=== PATIENT | female | born 1990 | race African-American/Black ===

== ENCOUNTER 2022-01-24 20:55 | Emergency (ER) | payer MEDICAID ==
[2022-01-24] MEDS ORDERED: Lisinopril 10 MG Tab PO ONE (22:49)
[2022-01-24] MEDS ORDERED: Ketorolac 30 MG/ML SDV IM ONE (22:58)
[2022-01-24 23:19] LABS: CORONAVIRUS COVID-19 NAA NEGATIVE (NEGATIVE); INFLUENZA A NAA NEGATIVE (NEGATIVE); INFLUENZA B NAA NEGATIVE (NEGATIVE)
[2022-01-24] MEDS ORDERED: Labetalol 100 MG Tab PO STA (23:19)
[2022-01-24] MEDS ORDERED: Penicillin G Benzathine 1,200,000 Units/2 ML Syringe IM ONE (23:37)
[2022-01-24 23:44] LABS: BLOOD UREA NITROGEN,BUN 10 mg/dL (7.0-18.0); CARBON DIOXIDE,CO2 25.3 mmol/L (21.0-32.0); CHLORIDE,CL 98 mmol/L (98-107); GLUCOSE RANDOM 104 mg/dL (74-106); POTASSIUM,K 3.7 mmol/L (3.5-5.1); SODIUM,NA 136 mmol/L (136-145)
== END 2022-01-25 00:29 | disposition home or self-care (01) ==
LOC: MW.ED 20:55
DX: J02.0 Streptococcal pharyngitis (principal); I10 Essential (primary) hypertension; Z79.899 Other long term (current) drug therapy; Z20.822 Contact with and (suspected) exposure to COVID-19
CPT/HCPCS: 0240U; 36415; 80053; 87651; 93005; 96372; 99283; A9270; J0561; J1885; 93010; 99284

== ENCOUNTER 2022-01-29 00:19 | Emergency (ER) | payer MEDICAID ==
[2022-01-29] MEDS ORDERED: Ondansetron 4 MG/2 ML SDV IVPUSH ONE (00:31)
[2022-01-29] MEDS ORDERED: Sodium Chloride 0.9% 10 ML Syringe FLUSH PRN (00:31)
[2022-01-29] MEDS ORDERED: Ketorolac 30 MG/ML SDV IVPUSH ONE (00:31)
[2022-01-29] MEDS ORDERED: fentaNYL 50 MCG/ML SDV IVPUSH ONE (00:31)
[2022-01-29] MEDS ORDERED: Sodium Chloride 0.9% 2.5 ML Syringe FLUSH PRN (00:31)
[2022-01-29] MEDS ORDERED: Sodium Chloride 0.9% 1,000 ML IV ONE (00:31)
[2022-01-29 01:20] LABS: BLOOD UREA NITROGEN,BUN 18 mg/dL (7.0-18.0); CARBON DIOXIDE,CO2 23.3 mmol/L (21.0-32.0); CHLORIDE,CL 104 mmol/L (98-107); ESTIMATED GFR > 60.0 ml/min; GLUCOSE RANDOM 103 mg/dL (74-106); LIPASE 60 U/L (73-393); POTASSIUM,K 3.8 mmol/L (3.5-5.1); SODIUM,NA 140 mmol/L (136-145)
== END 2022-01-29 03:23 | disposition home or self-care (01) ==
LOC: MW.ED 00:19
DX: K52.9 Noninfective gastroenteritis and colitis, unspecified (principal); I10 Essential (primary) hypertension
CPT/HCPCS: 36415; 74176; 80053; 81001; 81025; 83690; 85025; 96374; 96375; 99284; J1885; J2405; J7030; 99283; J3490

== ENCOUNTER 2022-04-04 05:28 | Emergency (ER) | payer MEDICAID ==
[2022-04-04] MEDS ORDERED: Labetalol 100 MG Tab PO STA (05:34)
[2022-04-04] MEDS ORDERED: Lisinopril 10 MG Tab PO STA (05:34)
[2022-04-04] MEDS ORDERED: hydrALAZINE 20 MG/ML SDV IVPUSH STA (06:00)
[2022-04-04 06:04] LABS: BLOOD UREA NITROGEN,BUN 13 mg/dL (7.0-18.0); CARBON DIOXIDE,CO2 24.4 mmol/L (21.0-32.0); CHLORIDE,CL 101 mmol/L (98-107); GLUCOSE RANDOM 98 mg/dL (74-106); POTASSIUM,K 3.3 mmol/L (3.5-5.1); SODIUM,NA 138 mmol/L (136-145)
[2022-04-04] MEDS ORDERED: Potassium Chloride 10% 20 MEQ/15 ML Soln 30 ML UD Cup PO ONE (06:18)
== END 2022-04-04 08:42 | disposition home or self-care (01) ==
LOC: MW.ED 05:28
DX: R07.9 Chest pain, unspecified (principal); I10 Essential (primary) hypertension; Z79.899 Other long term (current) drug therapy; Z91.19 Patient's noncompliance with other medical treatment and regimen
CPT/HCPCS: 36415; 71045; 80048; 83550; 83735; 84484; 85025; 93005; 96374; 99285; A9270; J0360

== ENCOUNTER 2022-08-02 10:29 | Emergency (ER) | payer MEDICAID ==
[2022-08-02] MEDS ORDERED: Ketorolac 60 MG/2 ML SDV IM ONE (10:47)
[2022-08-02] MEDS ORDERED: Orphenadrine 60 MG/2 ML Inj IM ONE (10:47)
== END 2022-08-02 11:16 | disposition home or self-care (01) ==
LOC: MW.ED 10:29
DX: M54.6 Pain in thoracic spine (principal); I10 Essential (primary) hypertension; E66.9 Obesity, unspecified; Z68.33 Body mass index [BMI] 33.0-33.9, adult; Z79.899 Other long term (current) drug therapy
CPT/HCPCS: 96372; 99283; J1885; J2360

== ENCOUNTER 2022-09-03 20:21 | Emergency (ER) | payer MEDICAID | END 2022-09-03 21:50 | disposition left against medical advice (07) | LOC: MW.ED 20:21 | DX: Z53.21 Procedure and treatment not carried out due to patient leaving prior to being seen by health care provider (principal) ==

== ENCOUNTER 2022-09-04 11:41 | Emergency (ER) | payer MEDICAID ==
[2022-09-04] MEDS: Lisinopril 10 MG Tab PO STA (12:24)
[2022-09-04 12:54] LABS: CARBON DIOXIDE,CO2 26.6 mmol/L (21.0-32.0); POTASSIUM,K 3.5 mmol/L (3.5-5.1)
== END 2022-09-05 13:20 | disposition home or self-care (01) ==
LOC: MW.ED 11:41
DX: R51.9 Headache, unspecified (principal); I10 Essential (primary) hypertension; E66.9 Obesity, unspecified; Z68.32 Body mass index [BMI] 32.0-32.9, adult
CPT/HCPCS: 36415; 80053; 84443; 84484; 85025; 99284; A9270; 93010; 99283